=== PATIENT | male | born 1980 | race Caucasian/White ===

== ENCOUNTER 2017-11-19 17:33 | Inpatient (IN) | payer BC, OTHER ==
--- NOTE | 2017-11-19 17:44 | EDPHY ---
H & P Stated Complaint: 1 week intermittent epigastric pain today n/v Time Seen by Provider: 11/19/17 17:42 - Personal History Current Tetanus/Diphtheria Vaccine: Unsure - Medical/Surgical History Hx Asthma: No Hx Chronic Respiratory Disease: No Hx Diabetes: No Hx Cardiac Disease: No Hx Renal Disease: No Hx Cirrhosis: No Hx Alcoholism: No Hx HIV/AIDS: No Hx Splenectomy or Spleen Trauma: No Other PMH: denies - Social History Smoking Status: Never smoked Constitutional: Initial Vital Signs Temperature (C) 36.7 C 11/19/17 17:36 Heart Rate 50 L 11/19/17 17:36 Respiratory Rate 17 11/19/17 17:36 Blood Pressure 127/94 H 11/19/17 17:36 O2 Sat (%) 97 11/19/17 17:36 O2 Delivery Mode Room Air Allergies/Adverse Reactions: No Known Allergies Allergy (Unverified 11/19/17 17:35) Home Medications: Medication Instructions Recorded Levothyroxine [Synthroid 100 mcg 100 mcg PO DAILY06 11/19/17 (*)] Medical Decision Making - Diagnostics Imaging Results: Imaging Impressions Abdomen Ultrasound 11/19/17 17:56 Impression: 1. Cholelithiasis, gallbladder wall thickening, and positive Marc's sign, suggesting acute cholecystitis. 2. Nonspecific 1.7-cm lymph node in the ej hepatis. Results called to Dr. Agustin Hudson at the time of the examination. Imaging: Discussed imaging studies w/ call center analyst Radiologist ED Course/Re-evaluation: CHIEF COMPLAINT: Abdominal pain HISTORY OF PRESENT ILLNESS: Healthy 37-year-old male whose had 1 week of epigastric pain. The pain seems to be exacerbated by food at times. He has had this intermittently over the last several years but it usually resolves spontaneously and half a day or day. He denies fevers or chills. He denies nausea vomiting. He has had normal bowel movements although admits that they are less than usual due to the fact that he has not been eating very much because it hurts. He has never had any abdominal surgeries. REVIEW OF SYSTEMS: A 10 point review of systems was performed and is negative with the exception of the elements mentioned in the history of present illness. PHYSICAL EXAM: HR, BP, O2 Sat, RR. Temp noted General Appearance: Alert, well hydrated, appropriate, and non-toxic appearing. Head: Atraumatic without scalp tenderness or obvious injury Eyes: Pupils equal, round, reactive to light and accommodation, EOMI, no trauma , no injection. Ears: Clear bilaterally, no perforation, normal landmarks Nose: Atraumatic, no rhinorrhea, clear. Throat: There is no erythema or exudates, no lesions, normal tonsils, mucus membranes moist. Neck: Supple, 2+ carotid upstroke, nontender, no lymphadenopathy. Respiratory: No retractions, no distress, no wheezes, and no accessory muscle use. Lungs are clear to auscultation bilaterally. Cardiovascular: Regular rate and rhythm, no murmurs, rubs, or gallops. Bilateral carotid, radial, dorsalis pedis, and posterior tibial pulses intact. Good capillary refill all extremities. Gastrointestinal: Abdomen is soft, positive Marc sign and tenderness in the right upper quadrant and epigastrium, non-distended, no masses, no rebound, no guarding, no peritoneal signs. Musculoskeletal: Normal active ROM of all extremities, atraumatic. Neurological: Alert, appropriate, and interactive. The patient has normal DTRs and non-focal cranial nerves, motor, sensory, and cerebellar exam. Skin: No rashes, good turgor, no nodules on palpation. Past medical history: Hypothyroidism Past surgical history: None Family history: Father had cholecystectomy and appendectomy Social history: , employed, does not abuse tobacco drugs or alcohol DIAGNOSTICS/PROCEDURES/CRITICAL CARE TIME: Study: Ultrasound of the: Gallbladder and right upper quadrant Indication: Positive Marc sign epigastric right upper quadrant pain Results: US scan of the right upper quadrant was obtained. The results of the study reveal acute cholecystitis. The study was read by the radiologist, Dr. Galarza. I viewed the images myself on the PACS system. DIFFERENTIAL DIAGNOSIS: The differential diagnosis for the patient's abdominal pain included but was not limited to appendicitis, cholecystitis, hernias, testicular torsion, gastritis, and urinary tract infection. MEDICAL DECISION MAKING: This patient seems to have maximal tenderness in the right upper quadrant and epigastrium. He has no evidence of peritoneal signs. Laboratory studies are pending including liver and lipase. This patient seems to be getting worse with food and gets better when he does not eat. I am suspicious of a gastritis or gastric ulcer based on that historical fact. Additionally, he took some Maalox which seemed to help him but only transiently. I will give this patient a GI cocktail to see if that also helps him here. 1834: Patient is spilling bilirubin into his urine. He also has elevated LFT's and lipase. He has a normal WBC. His labs reveal acute pancreatitis. 1912: Spoke with radiologist, patient's US reveals acute cholecystitis. 1916: Consulted with Dr. Finch, general surgeon, he agrees to consult on this patient. 1919: Consulted with Dr. Singh, document control clerk, he agrees to consult on this patient. 1926: Consulted with hospitalist service, Dr. Kaplan accepts admission of this patient. 1941: Reassessed patient and discussed imaging findings. I have also discussed plan for admission; patient is comfortable with this plan. 4mg IV Zofran and 1mg IV Dilaudid administered. - Data Points Laboratory Results: Laboratory Results 11/19/17 17:40 11/19/17 17:40 11/19/1718 11/19/17 18:02 17:40 17:40 WBC 6.55 10^3/uL 10^3/uL (3.80-9.50) RBC 5.20 10^6/uL 10^6/uL (4.40-6.38) Hgb 15.8 g/dL g/dL (13.7-17.5) Hct 45.2 % % (40.0-51.0) MCV 86.9 fL fL (81.5-99.8) MCH 30.4 pg pg (27.9-34.1) MCHC 35.0 g/dL g/dL (32.4-36.7) RDW 12.2 % % (11.5-15.2) Plt Count 201 10^3/uL 10^3/uL (150-400) MPV 10.0 fL fL (8.7-11.7) Neut % (Auto) 54.9 % % (39.3-74.2) Lymph % (Auto) 34.5 % % (15.0-45.0) Isabela % (Auto) 8.2 % % (4.5-13.0) Eos % (Auto) 1.4 % % (0.6-7.6) Baso % (Auto) 0.8 % % (0.3-1.7) Nucleat RBC Rel Count 0.0 % % (0.0-0.2) Absolute Neuts (auto) 3.60 10^3/uL 10^3/uL (1.70-6.50) Absolute Lymphs (auto) 2.26 10^3/uL 10^3/uL (1.00-3.00) Absolute Monos (auto) 0.54 10^3/uL 10^3/uL (0.30-0.80) Absolute Eos (auto) 0.09 10^3/uL 10^3/uL (0.03-0.40) Absolute Basos (auto) 0.05 10^3/uL 10^3/uL (0.02-0.10) Absolute Nucleated RBC 0.00 10^3/uL 10^3/uL (0-0.01) Immature Gran % 0.2 % % (0.0-1.1) Immature Gran # 0.01 10^3/uL 10^3/uL (0.00-0.10) Sodium 140 mEq/L mEq/L (135-145) Potassium 4.2 mEq/L mEq/L (3.5-5.2) Chloride 105 mEq/L mEq/L (97-110) Carbon Dioxide 18 mEq/l L mEq/l (22-31) Anion Gap 17 mEq/L H mEq/L (8-16) BUN 11 mg/dL mg/dL (7-23) Creatinine 0.9 mg/dL mg/dL (0.7-1.3) Estimated GFR > 60 Glucose 103 mg/dL H mg/dL (70-100) Calcium 9.6 mg/dL mg/dL (8.5-10.4) Total Bilirubin 6.9 mg/dL H mg/dL (0.1-1.4) Conjugated Bilirubin 4.4 mg/dL H mg/dL (0.0-0.5) Unconjugated Bilirubin 2.5 mg/dL H mg/dL (0.0-1.1) AST 464 IU/L H IU/L (17-59) ALT 505 IU/L H IU/L (21-72) Alkaline Phosphatase 128 IU/L H IU/L (38-126) Total Protein 8.0 g/dL g/dL (6.3-8.2) Albumin 4.8 g/dL g/dL (3.5-5.0) Lipase > 77669 IU/L H IU/L (23-300) Urine Color PAN Urine Appearance CLEAR Urine pH 5.0 (5.0-7.5) Ur Specific Orange 1.016 (1.002-1.030) Urine Protein NEGATIVE (NEGATIVE) Urine Ketones TRACE H (NEGATIVE) Urine Blood NEGATIVE (NEGATIVE) Urine Nitrate NEGATIVE (NEGATIVE) Urine Bilirubin NEGATIVE (NEGATIVE) Urine Urobilinogen 2.0 EU H EU (0.2-1.0) Ur Leukocyte Esterase NEGATIVE (NEGATIVE) Urine Glucose NEGATIVE (NEGATIVE) Medications Given: Discontinued Medications Al Hydroxide/Mg Hydroxide (Maalox Susp) 30 ml PO ONCE ONE Stop: 11/19/17 17:56 Last Admin: 11/19/17 18:00 Dose: 30 ml Ertapenem (Invanz) 1 gm IVP EDNOW ONE PRN Reason: Protocol Stop: 11/19/17 19:20 Last Admin: 11/19/17 19:31 Dose: 1 gm Hydromorphone HCl (Dilaudid) 1 mg IVP EDNOW ONE Stop: 11/19/17 19:31 Last Admin: 11/19/17 19:31 Dose: 1 mg Hyoscyamine Sulfate (Levsin, Hyomax-Sl) 0.25 mg PO ONCE ONE Stop: 11/19/17 17:56 Last Admin: 18 18:00 Dose: 0.25 mg Sodium Chloride (Ns) 1,000 mls @ 0 mls/hr IV EDNOW ONE; Wide Open PRN Reason: Protocol Stop: 11/19/17 17:56 Last Admin: 18 18:00 Dose: 1,000 mls Sodium Chloride (Ns) 1,000 mls @ 0 mls/hr IV ONCE ONE PRN Reason: Wide Open Stop: 11/19/17 19:31 Last Admin: 11/19/17 19:31 Dose: 1,000 mls Lidocaine (Lidocaine 2% Viscous) 15 ml PO ONCE ONE Stop: 11/19/17 17:56 Last Admin: 11/19/17 18:00 Dose: 15 ml Ondansetron HCl (Zofran) 4 mg IVP EDNOW ONE Stop: 11/19/17 19:31 Last Admin: 11/19/17 19:31 Dose: 4 mg Departure - Departure Disposition: [facility] Inpatient Acute Clinical Impression: Acute cholecystitis Pancreatitis, acute Qualifiers: Pancreatitis type: biliary Acute pancreatitis complication: unspecified Qualified Code(s): K85.10 - Biliary acute pancreatitis without necrosis or infection Condition: Fair Referrals: NONE *PRIMARY CARE P,. [Primary Care Provider] - As per Instructions
[2017-11-19] MEDS ORDERED: HYOSCYAMINE SULFATE 0.125 MG TAB PO ONE (17:55)
[2017-11-19] MEDS ORDERED: LIDOCAINE 2% VISCOUS 15 ML UDCUP PO ONE (17:55)
[2017-11-19] MEDS ORDERED: NS 1,000 ML IV ONE ×2 (17:55→19:30)
[2017-11-19] MEDS ORDERED: MAG HYDROX/AL HYDROX/SIMETH 30 ML UDCUP PO ONE (17:55)
[2017-11-19 18:01] LABS: PLATELET COUNT 201 10^3/uL (150-400)
[2017-11-19] MEDS ORDERED: ERTAPENEM 1 GM VIAL IVP ONE (19:19)
[2017-11-19] MEDS ORDERED: HYDROmorphONE/DILAUDID 1 MG/ML INJ ONE (19:27)
[2017-11-19] MEDS ORDERED: ONDANSETRON 4 MG/2 ML VIAL ONE (19:27)
[2017-11-19] MEDS ORDERED: HYDROmorphONE/DILAUDID 1 MG/ML INJ IVP ONE ×2 (19:30→20:28)
[2017-11-19] MEDS ORDERED: ONDANSETRON 4 MG/2 ML VIAL IVP ONE (19:30)
[2017-11-19] MEDS ORDERED: PROMETHAZINE HCL 25 MG/ML INJ ONE (20:07)
[2017-11-19] MEDS ORDERED: PROMETHAZINE HCL 25 MG/ML INJ IVP ONE (20:11)
[2017-11-19] MEDS ORDERED: NS 500 ML IV ONE (20:13)
--- NOTE | 2017-11-19 20:48 | GCON ---
[f rep st] CONSULTATION DATE OF CONSULTATION: 11/19/2017 CHIEF COMPLAINT: Epigastric pain. HISTORY OF PRESENT ILLNESS: This is an otherwise very healthy 37-year-old male who presents to the e mergency department complaining of a week-long history of epigastric pain. Patient states that the p ain has sort of waxed and waned over the last week. Always been epigastric in nature, but got acutel y worse over the last 24 hours to the point where it was associated with nausea and vomiting, which p rompted his presentation here. However, yesterday he did state that he was training for a marathon a nd ran 10 miles. He states that he has had issues like this in the past, although they are typically self-limited by time, and typically get better and never to the level that they are here. In additi on to the epigastric pain he endorses fevers, chills, nausea and vomiting. He does state that the pa in is a stabbing-type nature in the epigastrium with radiation to the back, 8/10 in intensity at its worst, better with p.o. abstinence and IV narcotics, worse with food and significant strenuous activi ty. PAST MEDICAL HISTORY: None. PAST SURGICAL HISTORY: Septoplasty performed remotely. ALLERGIES: None. CURRENT MEDICATIONS: None. FAMILY HISTORY: Appears as though father may have had a similar issue in the past as well. SOCIAL HISTORY: Works in computers. Drinks socially. Denies illicit drug use. REVIEW OF SYSTEMS: A full 10-point review was performed and unless explicitly stated above, is other granados negative. PHYSICAL EXAMINATION: VITAL SIGNS: Temperature 36.9, blood pressure 143/87, heart rate 51, and he i s 94% on room air. CONSTITUTIONAL: He is uncomfortable in mild amount of distress. EYES: His pupi ls are equal, round, and reactive to light and accommodation. He does have anicteric sclerae. His e xtraocular movements are otherwise intact. EARS, NOSE, MOUTH, THROAT: Dry mucous membranes. Hearin g is normal. No oral mucosal ulcers. CARDIOVASCULAR: He has a regular rate and rhythm without any m urmurs. RESPIRATORY: No respiratory distress. No rales, rhonchi, and he is otherwise clear to ausc ultation. GI: He has normoactive bowel sounds. He is significantly tender to palpation in the epig astrium. He is minimally tender in the right upper quadrant with what I would call a negative Marc sign. SKIN: Warm. Normal color. No rashes or abrasions. MUSCULOSKELETAL: Full strength. No ten derness. Normal joint range of motion. No joint effusions. NEUROLOGIC: He is alert and oriented x 3. His cranial nerves 2-12 are intact. He has no weakness, no numbness, no asterixis. PSYCH: He i s interacting appropriately. He is anxious. He is not encephalopathic. LYMPH, HEME AND IMMUNOLOGIC : He has no cervical, groin or supraclavicular lymphadenopathy. LABS: White blood cell count normal at 6. H and H stable at 16 and 45, no left shift. Platelets 20 1. Chemistries are remarkable for an elevated total bilirubin at 6.9, most of which is conjugated at 4.4 . His AST is 464, his ALT is 505, and his alk phos is 128. His lipase is greater than 20,000. The urine is positive for urobilinogen. IMAGING: Includes a right upper quadrant ultrasound, the images of which were personally reviewed by me. This shows cholelithiasis with gallbladder wall thickening. The common bile duct appears sher l, with no choledocholithiasis appreciated. ASSESSMENT AND PLAN: 37-year-old male with gallstone pancreatitis, query cholecystitis. Plan will b e admission to the medical service with gastroenterology consultation. Given his significantly eleva duncan bilirubin and lipase, high concern for choledocholithiasis and possible cholangitis. He has subs equently been started on empiric antibiotics, which I agree with. Question will be whether or not he is candidate for ERCP, but I feel given the above findings that would be the appropriate next step. I did discuss with the patient that prior to cholecystectomy, which I would recommend this admission , I would like to see his epigastric pain and lipase trend toward normal, as operating in the setting of significant pancreatitis increases the risks fairly significantly. I answered all of his and his 's questions to their satisfaction. I will continue to follow. Would recommend continuing to t rend his labs, and will evaluate and recommend cholecystectomy when appropriate. /[id number]/MODL
[2017-11-19] MEDS ORDERED: HYDROmorphONE/DILAUDID 1 MG/ML INJ IVP PRN (20:59)
[2017-11-19] MEDS: NS 1,000 ML IV SCH (21:04)
--- NOTE | 2017-11-20 00:09 | GHP ---
[f rep st] HISTORY AND PHYSICAL DATE OF ADMISSION: 11/19/2017 CHIEF COMPLAINT: Abdominal pain. HISTORY OF PRESENT ILLNESS: This is a 37-year-old male with a history of hypothyroidism, who presents to the emergency department complaining of abdominal pain. He states his symptoms started approximately 1 week ago. However , today his pain dramatically worsened, rating it an 8/10. He feels the pain is worse after eating. He has had this pain in the past. It is generally resolved and has not been this severe previously. He denies fevers or chills. He complains of nausea and did have some vomiting this afternoon. He denies hematemesis. He denies diarrhea or changes in his bowel habits. He denies weight loss. He has had poor oral intake over the past couple of days secondary to pain. In the emergency department, a right upper quadrant ultrasound revealed findings consistent with acute cholecystitis, as well as cholelithiasis. In addition, his lipase was greater than 20,000. Gastroenterology and General Surgery consultations were obtained, and he is admitted to the hospital for further management. PAST MEDICAL HISTORY: Hypothyroidism. MEDICATIONS: Please see ID Watchdog completed outpatient medication list. ALLERGIES: He has no known drug allergies. SOCIAL HISTORY: The patient is a nonsmoker. He is an active marathon runner. He is . He denies a history of alcohol abuse. FAMILY HISTORY: His father has a history of cholecystectomy. Cholecystectomy. REVIEW OF SYSTEMS: A 10-point review of systems was performed and is negative as per HPI. OBJECTIVE: VITAL SIGNS: Temperature 36.8, blood pressure 134/79, heart rate is 48-51, respiratory rate 12, he is 94% on room air. GENERAL: Patient is awake, alert and oriented, though a bit sleepy from medication. He is in no acute distress. HEENT: Head is atraumatic, normocephalic. Pupils equal, round, react to light. Extraocular movements intact. Oropharynx clear. Mucous membranes are moist. NECK: Supple. There is no JVD. HEART: Regular rate and rhythm without murmur. LUNGS: Clear to auscultation bilaterally. ABDOMEN: Soft, nondistended. He has mild epigastric and right upper quadrant tenderness to palpation without rebound, rigidity, or guarding. Normoactive bowel sounds are present. EXTREMITIES: Without cyanosis, clubbing, or edema. NEUROLOGIC: Grossly nonfocal. LABORATORY DATA: CBC is completely normal. Complete metabolic panel is remarkable for a CO2 of 18, anion gap of 17, total bilirubin 6.9, conjugated bilirubin 4.4, unconjugated 2.5, AST 464, ALT 505, alkaline phosphatase 128. His lipase is greater than 20,000. Urinalysis is non infectious. A right upper quadrant abdominal ultrasound performed in the emergency department shows cholelithiasis with gallbladder wall thickening and positive Marc sign consistent with acute cholecystitis. A nonspecific 1.7 cm lymph node is noted in the ej hepaticus. ASSESSMENT AND PLAN: The patient is a 37-year-old male, history of hypothyroidism, presents to the emergency department with abdominal pain, nausea , vomiting, is found to have gallstone pancreatitis, as well as acute cholecystitis. 1. Gallstone pancreatitis. There is no evidence of common bile duct dilatation on his right upper quadrant ultrasound by the surgeon's review. However, it is possible he will warrant endoscopic retrograde cholangiopancreatography. Given his degree of inflammation, will start with a magnetic resonance cholangiopancreatography in the morning. GI consult was obtained and will see the patient to consider need for endoscopic retrograde cholangiopancreatography. In the meantime, we will treat him with bowel rest and pain control with IV Dilaudid. He will be kept n.p.o. and receive aggressive IV fluids. Fortunately, he has no tachycardia. 2. Acute cholecystitis. He presents with elevated liver function tests and ultrasound findings of gallbladder wall thickening consistent with acute cholecystitis. General Surgery consult was obtained. He will likely warrant a cholecystectomy, though need to stabilize his pancreatitis situation 1st. Will continue him on intravenous ertapenem for now due to concern and risk for cholangitis. 3. Anion gap metabolic acidosis. This may be a starvation ketosis given his poor oral intake. Will follow this with hydration and aggressive IV fluids in the setting of pancreatitis. 4. Hypothyroidism. Will continue his outpatient levothyroxine. 5. Code status. Patient is full code. 6. Deep venous thrombosis prophylaxis. Patient is low risk. Will place sequential compression devices for now. Should he have a prolonged hospitalization with poor mobility, would consider Lovenox. 7. Disposition. Patient admitted to inpatient status. I anticipate greater than 48 hours hospitalization for ongoing management of his gallstone pancreatitis and acute cholecystitis. DICTATION ENDS HERE /[id number]/MODL MTDD
[2017-11-20] MEDS: ONDANSETRON 4 MG/2 ML VIAL IVP PRN ×3 (01:45→20:47)
[2017-11-20] MEDS: NS 1,000 ML IV SCH ×3 (01:46→20:16)
[2017-11-20] MEDS: HYDROmorphONE/DILAUDID 1 MG/ML INJ IVP PRN ×6 (01:51→20:47)
[2017-11-20] MEDS: PROMETHAZINE HCL 25 MG/ML INJ IVP PRN ×2 (02:53→11:38)
[2017-11-20 04:42] LABS: PLATELET COUNT 165 10^3/uL (150-400)
[2017-11-20 04:54] LABS: INR 1.24 (0.83-1.16); PROTIME(PATIENT) 15.8 SEC (12.0-15.0)
[2017-11-20] MEDS: LEVOTHYROXINE 100 MCG TAB PO SCH (05:42)
--- NOTE | 2017-11-20 08:20 | GCON ---
[f rep st] CONSULTATION DATE OF CONSULTATION: 11/20/2017 REFERRING PHYSICIAN: Magda Kaplan MD Dear Dr. Kaplan: Thank you very kindly for asking me to evaluate this patient in consultation for a chief complaint of acute pancreatitis. He is a 37-year-old gentleman without significant past medical history other th an hypothyroidism who has been having episodes of epigastric pain for about 7-10 days. He has also h ad a history of more remote but short-lived episodes of abdominal pain in the past. These have never been evaluated up until yesterday evening when the pain was significant enough to cause him to prese nt to the emergency room. At that point, he was noted to have elevated liver tests with an obstructe d pattern showing a total bilirubin of 6.9, elevated transaminases and an alkaline phosphatase of 128 , all of which were elevated and lipase greater than 20,000. An abdominal ultrasound performed revea led cholelithiasis with gallbladder wall thickening and a positive Marc sign, consistent with acute cholecystitis. The biliary anatomy was not noted on the report to be either normal or dilated. The pancreas was seen partly and was prominent in size without peripancreatic fluid collection. Overnight Chalo has reported continued problems with mild epigastric pain that radiates into his back although, with medication, it seems to be better controlled. His biggest problem has been ongoing na usea. He denies any fever, chills, jaundice or pruritus. He denies tea-colored urine, flank pain or dysuria. He has not had previous pancreatitis. He does not drink alcohol. There is no family hist ory of pancreatitis. PAST MEDICAL HISTORY: Hypothyroidism and what sounds like episodes of biliary colic. PAST SURGICAL HISTORY: None. MEDICATIONS ON ADMISSION: Synthroid. ALLERGIES: None known. SOCIAL HISTORY: No alcohol. The patient is . He lives in [place]. No biologic children. REVIEW OF SYSTEMS: CONSTITUTIONAL: Loss of appetite, nausea, general malaise. Denies fever, chills , night sweats, or weight loss. HEENT: Denies headache, no sore throat, no rhinorrhea, no difficult y swallowing. PULMONARY: No cough or shortness of breath. CARDIOVASCULAR: No chest pains, palpita tions or syncope. GI: Denies diarrhea. Denies acholic stools. Denies heartburn or dysphagia. Abd ominal pain, nausea without vomiting per the HPI. Duration of the pain has been approximately 24 shai rs at this point. RHEUMATOLOGIC: No joint pain, swelling or warmth. DERMATOLOGIC: No jaundice or pruritus. NEURO: Denies falls, weakness or paresthesias. GENITOURINARY: Denies dysuria, flank michelle n, or tea-colored urine. Denies hematuria. PSYCHIATRIC: Denies depression, anxiety, or substance a buse history. PHYSICAL EXAM: VITAL SIGNS: Blood pressure is 121/66 with a mean arterial pressure of 84. His hear t rate is 80, respirations are 16, oxygenation is 97% on 2 L nasal cannula. T-max is 37.1 with a T c urrent of 36.9. Body mass index is 23.4. GENERAL: Healthy appearing male in mild distress, mostly due to pain but comfortable and able to provide his own history and in no immediate distress. HEENT: Sclerae are anicteric. Oropharynx is clear. NECK: Supple. Mucous membranes are dry. No jugular venous distention or adenopathy to the neck. No thyromegaly. No jugular venous distention or carot id bruit. PULMONARY: Clear to auscultation bilaterally with good respiratory exchange. CARDIOVASCU LAR: Regular rate and rhythm without murmur, rub, gallop, or tachycardia. GI: Abdomen is soft and nondistended, no ascites, no abdominal bruit. Bowel sounds are hypoactive. No rebound or guarding. MUSCULOSKELETAL: No joint deformity, swelling or warmth. No palmar erythema. No clubbing. DERMAT OLOGIC: No rash or jaundice. NEUROLOGIC: Alert to person, place, and time. Cranial nerves 2-12 ar e normal. Motor is symmetric and nonfocal. DATABASE: Laboratories showing a white blood count of 6.8, hematocrit of 36.8 with an MCV of 87, roula telets are 165. INR is 1.24 with a PT of 15.2. Initial LFTs on November 19 show a total bilirubin o f 6.9 with a direct of 4.4, AST 464, ALT 505, alkaline phosphatase 128, lipase is greater than 20,000 , albumin 4.8, total protein 8.0. Laboratories this morning for LFTs, November 20, 2017, showed tota l bilirubin of 3.0 with a direct of 1.5, AST is 229, ALT is 396, alkaline phosphatase 74, lipase is 1 8,153. Imaging includes an abdominal ultrasound performed on November 19, 2017, demonstrating a pancreas leonardo t is mildly prominent without peripancreatic fluid collection. The gallbladder contains echogenic st ones that are dependent within the gallbladder body. There is wall thickening to 4.3 mm and a positi ve sonographic Marc's. The biliary anatomy is not noted. IMPRESSION: 1. Epigastric abdominal pain. 2. Nausea without vomiting. 3. Elevated liver tests. 4. Acute pancreatitis, most likely gallstone mediated. 5. Possible biliary obstruction. RECOMMENDATIONS: 1. N.p.o. 2. Aggressive IV fluid hydration. 3. Invanz for prophylaxis in the setting of gallstone pancreatitis with obstruction. 4. MRCP today to better evaluate the biliary anatomy and see if there is a retained stone that needs to be removed. 5. Surgical consultation for cholecystectomy. 6. If the patient's labs and clinical picture continued to improve with resolution of his pancreatit is and his MRCP is normal without dilated ductal anatomy and no evidence of choledocholithiasis in th e setting of good quality MR imaging, then a laparoscopic cholecystectomy with attempted IOC (intraop erative cholangiogram) could be considered as an alternative to preoperative ERCP. 7. If his MRCP however, demonstrates choledocholithiasis, I believe a preoperative ERCP would be nec essary. 8. Further recommendations depending his clinical course. Continue to monitor LFTs and lipase for n ow. 9. Further recommendations to follow. /[id number]/MODL
[2017-11-20] MEDS: ERTAPENEM 1 GM VIAL IV SCH (08:45)
--- NOTE | 2017-11-20 10:39 | PDMN ---
Medical Necessity Medical necessity: Patient meets inpatient criteria per physician note and [facility] [place] -[place] Pancreatitis (patient presents w/epigastric pain waxing/waning x 1 week, now with N/V; lipase > 20,000 and elevated liver enzymes; US suggests acute cholecystitis/gallstone pancreatitis; anticipated LOS > 2 midnights for bowel rest, IV hydration and antibiotics, IV Dilaudid for pain management, possible ERCP, likely surgical intervention after pancreatitis stabilized.)
--- NOTE | 2017-11-20 11:11 | SOAPPROG ---
SOAP Progress Note Assessment/Plan: Assessment/Plan: - 37yo M c gallstone panc, ? cholecystitis - WBC WNL - LFTs downtrending, lipase still 18k - still pretty tender in the epigastrium and RUQ - MRCP today, ERCP pending results - Ricarda when clinically.biochemically improved 11/20/17 11:10 Subjective: nauseated through the night, better this AM Objective: Vital Signs Temp Pulse Resp BP Pulse Ox 37.2 C 61 16 122/70 H 95 11/20/17 08:18 11/20/17 08:18 11/20/17 08:18 11/20/17 08:18 11/20/17 08:18 Laboratory Results 11/20/17 04:31 11/20/17 04:31 11/19/17 11/20/17 11/21/17 05:59 05:59 05:59 Intake Total 5074 Balance 5074 PT 15.8 SEC (12.0-15.0) H 11/20/17 04:31 INR 1.24 (0.83-1.16) H 11/20/17 04:31 ICD10 Worksheet Patient Problems: Problems Problem Status Onset Acute cholecystitis Acute Pancreatitis, acute Acute
[2017-11-20] MEDS ORDERED: GADOBUTROL 10 ML VIAL IVP ONE (12:28)
--- NOTE | 2017-11-20 13:39 | HOSPPROG ---
Hospitalist Progress Note Assessment/Plan: DIAGNOSES: -acute gallstone pancreatitis -acute cholecystitis -cholelithiasis -anion gap metabolic acidosis -mild anemia due to above I reviewed all the above in detail with the patient, and we reviewed the nature and mechanisms of pancreatitis, the aggravating factors and causes, the need to rule out potential persistent obstructing ductal stone in the benefits of cholecystectomy. We reviewed the potential complications of acute and recurrent pancreatitis. At present it seems that this will almost certainly be a gallstone induced pancreatitis but will want to check a triglyceride to be sure that that is not significantly elevated. PLANS: -continue IV hydration -continue current antibiotics -continue NPO -MRCP ordered and pending will review that as it is done; consider ERCP for stone extraction if necessary -pain management -cholecystectomy will be recommended once he is stable enough -repeat CBC, liver panel, electrolytes and glucose in the morning to assess for improvement or worsening -will check triglycerides to make sure they are not causative SUBJECTIVE: The pain is better managed at this point Occasional nausea but not much to so far No appetite No chills or sweats or other fever symptoms No respiratory symptoms OBJECTIVE Vitals reviewed: No fever vitals overall stable No hypoxemia Exam: alert oriented skin warm dry color ok no jaundice resps not labored lungs clear BSs heart regular abd soft nondistended mildly tender at epigastrium, no rebound and no palpable abnormality, bowel sounds present limbs warm, no edema iv site ok Lab data: His lipase remains elevated at 18,000 thousand Bilirubin remains elevated but has improved slightly from yesterday, still has elevations of hepatic transaminases Renal function stable Glucose and calcium are in good range The I reviewed his MRCP images today, I can see numerous gallstones in the gallbladder but at least through the [employer] windows I am unable to adequately assess the biliary and pancreatic ducts systems to see how dilated they might be or if there are ductal stones. Will need to review with Radiology , no radiology report available yet. Objective: Vital Signs Temp Pulse Resp BP Pulse Ox 37.1 C 69 15 115/66 94 11/20/17 11:39 11/20/17 11:39 11/20/17 11:39 11/20/17 11:39 11/20/17 11:39 Laboratory Results 11/20/17 04:31 11/20/17 04:31 11/19/17 11/20/17 11/21/17 06:59 06:59 06:59 Intake Total 5074 Balance 5074 PT 15.8 SEC (12.0-15.0) H 11/20/17 04:31 INR 1.24 (0.83-1.16) H 11/20/17 04:31 ICD10 Worksheet Patient Problems: Problems Problem Status Onset Acute cholecystitis Acute Pancreatitis, acute Acute
--- NOTE | 2017-11-20 16:28 | ASMTCMCOM ---
CM Note CM Note Notes: Pt was admitted with acute cholecystitis, pancreatitis. Lap priscilla planned. Anticipate d/c with no CM needs when medically cleared. Will continue to follow for any change in needs. Date Signed: 11/20/2017 04:27 PM Electronically Signed By:ADRIANNA Santana
[2017-11-21] MEDS: NS 1,000 ML IV SCH ×3 (01:16→16:11)
[2017-11-21 05:08] LABS: PLATELET COUNT 172 10^3/uL (150-400)
[2017-11-21] MEDS: LEVOTHYROXINE 100 MCG TAB PO SCH (05:49)
[2017-11-21] MEDS: ERTAPENEM 1 GM VIAL IV SCH (09:02)
--- NOTE | 2017-11-21 11:58 | SOAPPROG ---
FISH Progress Note Assessment/Plan: Assessment: 1. GS pancreatitis 2. Epigastric pain 3. Cholelithiasis 4. Elevated LFTs Plan: 1. Negative MRCP and clinical improvement suggests stone passage 2. Recommend lap cholecystectomy with IOC 3. NPO for now 4. If pre-op ERC is felt to be important by surgery or IOC is positive then I will arrange for ERC Call with questions. I will contact surgery today regarding my thoughts. 11/21/17 11:55 Subjective: CC: abdominal pain Improved. MRC negative (normal ductal anatomy without choledocholithiasis No fever. LFTs much improved. Objective: Vital Signs Temp Pulse Resp BP Pulse Ox 37.2 C 81 16 134/79 H 93 11/21/17 09:44 11/21/17 09:44 11/21/17 09:44 11/21/17 09:44 11/21/17 09:44 Laboratory Results 11/21/17 05:00 11/21/17 05:00 11/20/17 11/21/17 11/22/17 05:59 05:59 05:59 Intake Total 5074 1525 2532 Output Total 450 Balance 5074 1525 2082 PT 15.8 SEC (12.0-15.0) H 11/20/17 04:31 INR 1.24 (0.83-1.16) H 11/20/17 04:31 Physical Exam - Physical Exam General Appearance: WD/WN, no apparent distress EENT: normal ENT inspection Neck: supple Respiratory: lungs clear Cardiac/Chest: regular rate, rhythm, No tachycardia Abdomen: normal bowel sounds, non-tender, soft, No organomegaly, No distended, No guarding, No rebound, No ascites Skin: warm/dry, No jaundice Extremities: No swelling ICD10 Worksheet Patient Problems: Problems Problem Status Onset Acute cholecystitis Acute Pancreatitis, acute Acute
[2017-11-21] MEDS: ONDANSETRON 4 MG/2 ML VIAL IVP PRN (12:48)
[2017-11-21] MEDS: HYDROmorphONE/DILAUDID 1 MG/ML INJ IVP PRN (12:49)
--- NOTE | 2017-11-21 14:20 | SOAPPROG ---
SOAP Progress Note Assessment/Plan: Assessment/Plan: - 37yo M c gallstone panc, ? cholecystitis - WBC remains WNL - MRCP reviewed: duct looks normal without filling defect. Fluid around pancreas c/w significant pancreatitis and GB wall thickening cw cholecystitis - Lipase still just under 10k today, cont to trend. LFTs mostly normalized - Continues to improve clinically, discussed with Gatoff, no need for pre-op ERCP. - Likely to OR for lap priscilla with grams in next 24-48hrs, discussed this with the patient 11/20/17 11:10 11/21/17 14:18 Subjective: still having epigastric and RUQ pain, improving Objective: Vital Signs Temp Pulse Resp BP Pulse Ox 37.2 C 81 16 134/79 H 93 11/21/17 09:44 11/21/17 09:44 11/21/17 09:44 11/21/17 09:44 11/21/17 09:44 Laboratory Results 11/21/17 05:00 11/21/17 05:00 11/20/17 11/21/17 11/22/17 05:59 05:59 05:59 Intake Total 5074 1525 2532 Output Total 450 Balance 5074 1525 2082 PT 15.8 SEC (12.0-15.0) H 11/20/17 04:31 INR 1.24 (0.83-1.16) H 11/20/17 04:31 ICD10 Worksheet Patient Problems: Problems Problem Status Onset Acute cholecystitis Acute Pancreatitis, acute Acute
--- NOTE | 2017-11-21 19:41 | HOSPPROG ---
Hospitalist Progress Note Assessment/Plan: DIAGNOSES: -acute gallstone pancreatitis -acute cholecystitis -cholelithiasis -anion gap metabolic acidosis -mild anemia due to above I examined the patient together today with Dr Singh and we reviewed case in detail I reviewed again in detail with the patient. He does not have evidence of stone or obstruction now. Should have cholecystectomy when pancreatitis sufficiently resolved. ? 1-2 days or more. At present conservative care remains indicated. PLANS: -continue IV hydration -continue current antibiotics -continue NPO -review w surgery, likely to recommend lap priscilla soon -pain management -repeat labs in am SUBJECTIVE: The pain is better managed at this point Occasional nausea but not much to so far No appetite No chills or sweats or other fever symptoms No respiratory symptoms OBJECTIVE Vitals reviewed: No fever vitals overall stable No hypoxemia Exam: alert oriented skin warm dry color ok no jaundice resps not labored lungs clear BSs heart regular abd soft nondistended mildly tender at epigastrium, no rebound and no palpable abnormality, bowel sounds present limbs warm, no edema iv site ok Lab data: His lipase remains elevated at 9,000 thousand but decreasing daily bili and transaminases better Renal function stable Glucose and calcium are in good range triglycerides normal Objective: Vital Signs Temp Pulse Resp BP Pulse Ox 37.2 C 73 17 126/79 H 93 11/21/17 16:31 11/21/17 16:31 11/21/17 16:31 11/21/17 16:31 11/21/17 16:31 Laboratory Results 11/21/17 05:00 11/21/17 05:00 11/20/17 11/21/17 11/22/17 06:59 06:59 06:59 Intake Total 5074 4057 2237 Output Total 450 Balance 5074 4057 1787 PT 15.8 SEC (12.0-15.0) H 11/20/17 04:31 INR 1.24 (0.83-1.16) H 11/20/17 04:31 - Time Spent With Patient Time Spent with Patient: greater than 35 minutes Time Spent with Patient: Greater than 35 minutes spent on this patients care, greater than 50% of time spent counseling, educating, and coordinating care regarding the above mentioned plan. ICD10 Worksheet Patient Problems: Problems Problem Status Onset Acute cholecystitis Acute Pancreatitis, acute Acute
[2017-11-21] MEDS ORDERED: MELATONIN 3 MG TAB PO PRN (23:29)
[2017-11-21] MEDS ORDERED: KETOROLAC 15 MG/1 ML SDV IVP ONE (23:29)
[2017-11-22] MEDS: NS 1,000 ML IV SCH ×2 (04:05→10:51)
[2017-11-22] MEDS: LEVOTHYROXINE 100 MCG TAB PO SCH (06:14)
[2017-11-22] MEDS: ERTAPENEM 1 GM VIAL IV SCH (09:09)
[2017-11-22] MEDS ORDERED: FLU VACC QS 2017-18 (3YR+)/PF 0.5 ML SYR (FLUARIX QUAD) IM ONE (12:09)
--- NOTE | 2017-11-22 14:17 | HOSPPROG ---
Hospitalist Progress Note Assessment/Plan: DIAGNOSES: -acute gallstone pancreatitis -acute cholecystitis -cholelithiasis -anion gap metabolic acidosis -mild anemia due to above I examined the patient together today with Dr Singh and we reviewed case in detail I reviewed again in detail with the patient. He does not have evidence of stone or obstruction now. Should have cholecystectomy when pancreatitis sufficiently resolved. ? 1-2 days or more. At present conservative care remains indicated. PLANS: -Likely ready for lap priscilla tomorrow, Surgery to eval -continue IV hydration -continue current antibiotics -cont likely advance to [facility] -pain management -repeat labs in am Subjective: Feels better. no abd pain. still NPO Objective: Vital Signs Temp Pulse Resp BP Pulse Ox 37.1 C 71 18 152/89 H 94 11/22/17 13:26 11/22/17 13:26 11/22/17 13:26 11/22/17 13:26 11/22/17 13:26 Laboratory Results 11/21/17 05:00 11/22/17 04:39 11/21/17 11/22/17 11/23/17 05:59 05:59 05:59 Intake Total 1525 6129 Output Total 450 Balance 1525 5679 PT 15.8 SEC (12.0-15.0) H 11/20/17 04:31 INR 1.24 (0.83-1.16) H 11/20/17 04:31 - Physical Exam Constitutional: no apparent distress Eyes: PERRL Ears, Nose, Mouth, Throat: moist mucous membranes, hearing normal Cardiovascular: regular rate and rhythym, no murmur, rub, or gallop Respiratory: no respiratory distress Gastrointestinal: normoactive bowel sounds, No tenderness Genitourinary: no bladder fullness Skin: warm Musculoskeletal: full muscle strength Neurologic: AAOx3 Psychiatric: interacting appropriately Lymph, Heme, Immunologic: no cervical LAD ICD10 Worksheet Patient Problems: Problems Problem Status Onset Acute cholecystitis Acute Pancreatitis, acute Acute
--- NOTE | 2017-11-22 16:49 | SOAPPROG ---
SOAP Progress Note Assessment/Plan: Assessment/Plan: 37 Y M gallstone pancreatitis. Lipase continues to improve, now 5,000. Patient feeling well. Plan for lap priscilla c IOC c Dr. Finch tomorrow, 11/23. Risks, options, and expectations discussed. Patient without many questions--felt comfortable with answers from Dr. Finch over the last few days. Clear liquids today. NPO p mn. Hold chemical VTE ppx. On scheduled abx. Consent in chart. S: not in much pain. eager to get better so he can attend IVF treatment with fri or sat. O: alert, nad no jaundice no wob rrr abd soft, mild epigastric tenderness, no guarding 11/22/17 16:44 Objective: Vital Signs Temp Pulse Resp BP Pulse Ox 37.2 C 76 16 148/86 H 94 11/22/17 16:33 11/22/17 16:33 11/22/17 16:33 11/22/17 16:33 11/22/17 16:33 Laboratory Results 11/21/17 05:00 11/22/17 04:39 11/21/17 11/22/17 11/23/17 05:59 05:59 05:59 Intake Total 1525 6129 2394 Output Total 450 Balance 1525 5645 2394 PT 15.8 SEC (12.0-15.0) H 11/20/17 04:31 INR 1.24 (0.83-1.16) H 11/20/17 04:31 ICD10 Worksheet Patient Problems: Problems Problem Status Onset Acute cholecystitis Acute Pancreatitis, acute Acute
[2017-11-23] MEDS: NS 1,000 ML IV SCH ×2 (00:10→06:25)
[2017-11-23] MEDS: LEVOTHYROXINE 100 MCG TAB PO SCH (06:29)
[2017-11-23] MEDS ORDERED: BUPIVACAINE 0.25% 30 ML SDV ONE (07:36)
[2017-11-23] MEDS ORDERED: LR 1,000 ML IV ONE (07:55)
--- NOTE | 2017-11-23 08:16 | PDHPUP ---
History & Physical Update H&P update statement: This history and physical update is based on an assessment of the patient which was completed after admission or registration (within 24 hours), but prior to the surgery/procedure. H&P update: H&P reviewed & patient examined, no change in patient's condition since H&P completed
[2017-11-23] MEDS ORDERED: MIDAZOLAM 2 MG/2 ML VIAL IVP ONE (08:33)
--- NOTE | 2017-11-23 08:33 | PDANEPAE ---
ANE History of Present Illness cholelithiasis/pancreatitis here for lap priscilla ANE Past Medical History - Cardiovascular History Hx Hypertension: No Hx Arrhythmias: No Hx Chest Pain: No - Pulmonary History Hx Oxygen in Use at Home: No Hx Sleep Apnea: No Sleep Apnea Screening Result - Last Documented: Negative - Endocrine History Hx Diabetes: No Hypothyroid: Yes ANE Review of Systems Review of Systems: - Exercise capacity Exercise capacity: >=4 METS ANE Patient History - Allergies Allergies/Adverse Reactions: No Known Allergies Allergy (Unverified 11/19/17 17:35) - Home Medications Home Medications: Levothyroxine [Synthroid 100 mcg (*)] 100 mcg PO DAILY06 11/19/17 [Last Taken Unknown] - NPO status NPO Status: no food or drink >8 hours NPO Since - Liquids (Date): 11/23/17 NPO Since - Liquids (Time): 00:01 NPO Since - Solids (Date): 11/19/17 NPO Since - Solids (Time): 12:00 - Anes Hx Anes Hx: no prior problems - Smoking Hx Smoking Status: Never smoked - Alcohol Use Alcohol Use: Occasionally - Family Anes Hx Family Anes Hx: none ANE Labs/Vital Signs - Labs Result Diagrams: 11/21/17 05:00 11/23/17 05:01 - Vital Signs Blood Pressure: 136/92 Heart Rate: 64 Respiratory Rate: 12 O2 Sat (%): 91 Height: 180.34 cm Weight: 76.204 kg ANE Physical Exam - Airway Neck exam: FROM Mallampati Score: Class 2 Mouth exam: normal dental/mouth exam - Pulmonary Pulmonary: no respiratory distress, clear to auscultation - Cardiovascular Cardiovascular: regular rate and rhythym, no murmur, rub, or gallop - ASA Status ASA Status: II ANE Anesthesia Plan Anesthesia Plan: general endotracheal anesthesia
[2017-11-23] MEDS ORDERED: IOTHALAMATE MEG (CONRAY) 50 ML VIAL IV ONE (08:38)
[2017-11-23] MEDS ORDERED: fentaNYL 100 MCG/2 ML INJ ONE ×3 (08:40→10:04)
[2017-11-23] MEDS ORDERED: PROPOFOL 200 MG/20 ML VIAL ONE (08:40)
[2017-11-23] MEDS ORDERED: ROCURONIUM 50 MG/5 ML VIAL ONE ×2 (08:47→09:31)
[2017-11-23] MEDS ORDERED: ONDANSETRON 4 MG/2 ML VIAL ONE (08:47)
[2017-11-23] MEDS ORDERED: DEXAMETHASONE 4 MG/ML VIAL ONE (08:47)
[2017-11-23] MEDS ORDERED: LIDOCAINE 2% 5 ML SDV ONE (08:47)
[2017-11-23] MEDS: ERTAPENEM 1 GM VIAL IV SCH (09:15)
[2017-11-23] MEDS ORDERED: SUGAMMADEX SODIUM 200 MG/2 ML VIAL IVP ONE (09:53)
[2017-11-23] MEDS ORDERED: oxyCODONE IR 5 MG TAB PO PRN (10:15)
--- NOTE | 2017-11-23 10:15 | POSTOPPROG ---
Post Op Note Date of Operation: 11/23/17 Surgeon: Jonathan Finch Anesthesiologist: Mony Anesthesia: GET(General Endotracheal) Pre-op Diagnosis: Gallstone pancreatitis Post-op Diagnosis: gallstone panc, acute cholecystitis Procedure: lap priscilla with IOC Findings: IOC: no defect. Criticla view obtained Inf/Abcess present in the surg proc area at time of surgery?: No EBL: Minimal Specimen(s): GB
[2017-11-23] MEDS ORDERED: ONDANSETRON 4 MG/2 ML VIAL IVP PRN (10:38)
[2017-11-23] MEDS ORDERED: ACETAMINOPHEN 500 MG TAB PO PRN (10:38)
[2017-11-23] MEDS ORDERED: HYDROCODONE/APAP 5/325 TAB PO PRN (10:38)
[2017-11-23] MEDS ORDERED: OXYCODONE/APAP 5/325 TAB PO PRN (10:38)
[2017-11-23] MEDS ORDERED: fentaNYL 100 MCG/2 ML INJ IVP PRN (10:38)
[2017-11-23] MEDS ORDERED: NALOXONE HCL 0.4 MG/ML INJ IVP PRN (10:38)
--- NOTE | 2017-11-23 10:40 | POSTANESTH ---
Post Anesthetic Evaluation Cardiovascular Status: Normal, Stable, Similar to Pre-Op Cond Respiratory Status: Normal, Stable, Similar to Pre-op Cond. Level of Consciousness/Mental Status: Can Participate in Eval, Alert and Oriented Pain Control: Adequate, Prn Tx Ordered Nausea/Vomiting Control: Adequate, Prn Tx Ordered Complications Possibly Related to Anesthesia: None Noted
--- NOTE | 2017-11-23 11:08 | GOP ---
[f rep st] OPERATIVE REPORT DATE OF OPERATION: 11/23/2017 SURGEON: Jonathan Finch MD BULB FILLER: None. ANESTHESIA: General endotracheal provided by Dr. Sykes. PREOPERATIVE DIAGNOSIS: Gallstone pancreatitis. POSTOPERATIVE DIAGNOSIS: 1. Gallstone pancreatitis. 2. Acute cholecystitis. PROCEDURE PERFORMED: Laparoscopic cholecystectomy with intraoperative cholangiogram. FINDINGS: Intraoperative cholangiogram showed brisk spillage of contrast into the duodenum without filling defect. Critical view obtained. SPECIMENS: Gallbladder. ESTIMATED BLOOD LOSS: 5 cc. DESCRIPTION OF PROCEDURE: The patient was greeted in the preoperative suite. Once again, risks, benefits, and alternatives were discussed. Consent was signed. He was then brought back to the operative suite, placed on the OR table in supine position. After all anesthesia machines including SCDs were on and functioning, [employer] time-out was performed. After successful induction of general anesthesia, the patient's abdomen was widely prepped and draped in a typical sterile fashion. I commenced the procedure by making an infraumbilical cutdown through which the Veress needle was passed. I achieved pneumoperitoneum to 15 mmHg which was well tolerated. Through this, I inserted a 12 mm Visiport. I inspected all the viscera. There was some free fluid in the right upper quadrant consistent with his pancreatitis, but no other significant findings. I then placed 3 additional 5 mm trocars, 1 in the subxiphoid, 2 in the right upper quadrant, all under direct visualization. I successfully retracted the gallbladder over the liver edge and bluntly took down some omental adhesions. After taking down these adhesions, I grasped the infundibulum and it dissected. Identified 2 and only 2 structures leading toward the gallbladder. The Hudson clamp was then brought in and a cholangiogram was performed. This showed brisk spillage of contrast into the duodenum without filling defect as well as good opacification of all of the biliary radicles. The Hudson clamp was then removed. Clips were placed both proximally and distally on the cystic duct and it was ligated. I did place an additional 0 PDS Endoloop for additional securing of the cystic duct stump as it was somewhat edematous. The cystic artery was then dissected out, clipped and divided. The gallbladder was then taken off the liver bed using electrocautery. It was placed in an EndoCatch bag and removed. The right upper quadrant was then irrigated with warm normal saline noting clear effluent in the suction canister. My clips and Endoloop were then inspected and noted to be in appropriate place and hemostatic. I then injected local anesthesia into all port sites which were then removed. I evacuated my pneumoperitoneum. I closed my infraumbilical stitch in the port site with an 0 Vicryl stitch noting excellent fascial reapproximation. The skin was closed with Monocryl. Dermabond was placed. The patient was then extubated in the operative suite and taken to the PACU in satisfactory condition. DRAINS: None. COUNTS: All counts were reported as correct x2. /[id number]/MODL MTDD
[2017-11-23 11:24] VITALS: RESP 18
[2017-11-23 12:12] VITALS: PULSE 68
--- NOTE | 2017-11-23 14:19 | HOSPPROG ---
Hospitalist Progress Note Assessment/Plan: DIAGNOSES: -acute gallstone pancreatitis -acute cholecystitis -cholelithiasis -anion gap metabolic acidosis -mild anemia due to above I examined the patient together today with Dr Singh and we reviewed case in detail I reviewed again in detail with the patient. He does not have evidence of stone or obstruction now. Should have cholecystectomy when pancreatitis sufficiently resolved. ? 1-2 days or more. At present conservative care remains indicated. PLANS: -The patient is seen around 1400. He had Lap Priscilla today. He has not had flatus. He is hoping to d/c today -d/c per surgery, today or tomorrow -pain mgmt -Diet per surgery Subjective: had lap priscilla today. no flatus. He is hoping to d/c tomorrow Objective: Vital Signs Temp Pulse Resp BP Pulse Ox 36.9 C 68 18 154/92 H 93 11/23/17 12:11 11/23/17 12:11 11/23/17 12:11 11/23/17 12:11 11/23/17 12:11 Laboratory Results 11/21/17 05:00 11/23/17 05:01 11/22/17 11/23/17 11/24/17 05:59 05:59 05:59 Intake Total 6129 4694 500 Output Total 450 20 Balance 5679 4694 480 PT 15.8 SEC (12.0-15.0) H 11/20/17 04:31 INR 1.24 (0.83-1.16) H 11/20/17 04:31 - Physical Exam Constitutional: no apparent distress, appears nourished Eyes: PERRL, EOMI Ears, Nose, Mouth, Throat: moist mucous membranes, hearing normal Cardiovascular: regular rate and rhythym, no murmur, rub, or gallop Respiratory: no respiratory distress Gastrointestinal: other (hypoactive BS, minimally distended, appropriate mild TTP) Skin: warm Musculoskeletal: generalized weakness Neurologic: AAOx3 Psychiatric: interacting appropriately, not anxious, not encephalopathic Lymph, Heme, Immunologic: No petechiae ICD10 Worksheet Patient Problems: Problems Problem Status Onset Acute cholecystitis Acute Pancreatitis, acute Acute
--- NOTE | 2017-11-23 14:46 | ASMTCMCOM ---
CM Note CM Note Notes: Reviewed chart and discussed w/RN and Hospitalist. Pt hasd surgery earlier today. Anticipate dc home w/, no CM needs when medically ready. Date Signed: 11/23/2017 02:45 PM Electronically Signed By:Zara Fish RN
[2017-11-23 16:44] VITALS: BP 156/95; TEMP 97.9; O2SAT 94
== END 2017-11-23 19:48 | disposition home or self-care (01) | DRG 417 ==
LOC: F1N 20:37
PROVIDERS: ADMIT Hospitalist; ATTEND Internal Medicine
DX: K80.12 Calculus of gallbladder with acute and chronic cholecystitis without obstruction (principal); K85.10 Biliary acute pancreatitis without necrosis or infection
CPT/HCPCS: 96374; A9585; G0008; J0171; J1100; J1170; J1335; J1885; J2250; J2405; J2550; J2704; J3010; Q9961

== ENCOUNTER 2017-11-24 18:18 | Emergency (ER) | payer OTHER ==
[2017-11-24 18:23] VITALS: RESP 16; TEMP 97.5; O2SAT 97
--- NOTE | 2017-11-24 18:56 | EDPHY ---
H & P Time Seen by Provider: 11/24/17 18:42 HPI/ROS: CHIEF COMPLAINT: Leg swelling and tingling HISTORY OF PRESENT ILLNESS: The patient had recent admission to the hospital for gallstone pancreatitis and was several days on IV fluids. He had cholecystectomy yesterday was discharged last night. Patient presents today with bilateral leg swelling and feels his right leg is tingling in his thigh and down to his foot. Denies any associated weakness or numbness in the foot or any incontinence. No chest pain or shortness of breath. Is concerned about DVT. REVIEW OF SYSTEMS: Eye: no change in vision ENT: no sore throat Cardiac: no chest pain or syncope Pulmonary: no cough or SOB Abdomen: Is having some gas and bowel movement, has a little bit of residual abdominal pain but much improved since the surgery Musculoskeletal: no back pain Skin: no rash, incisions clean dry and intact Neuro: no headache Constitutional: no fever : no urinary symptoms A comprehensive 10 point review of systems is otherwise negative aside from elements mentioned in the history of present illness. PAST MEDICAL HISTORY: Cholecystectomy in gallstone pancreatitis, hypothyroid Social history: here with his General Appearance: Alert and conversant, cooperative. Eyes: No scleral icterus. ENT, Mouth: Normal mucous membranes. Respiratory: Normal respiratory effort, breath sounds equal, lungs are clear to auscultation. Cardiovascular: Regular rate and rhythm. Gastrointestinal: Abdomen is soft and non tender. Incisions look clean dry and intact. Neurological: Alert, face symmetric, normal motor and sensory in extremities. Skin: Warm and dry, no rashes. Musculoskeletal: Trace bilateral pedal edema but the patient has normal motor and sensory in each foot, compartments are soft, patellar reflexes 2+ and symmetric, dorsalis pedis pulse present in both feet. Psychiatric: Not agitated. Emergency Department course/MDM: Bilateral leg ultrasound ordered to evaluate for DVT. I think it is more likely that he has leg swelling from third-spacing of all the IV fluid he received. If negative ultrasound, symptomatic treatment only. Smoking Status: Never smoked Constitutional: Initial Vital Signs Temperature (C) 36.4 C 11/24/17 18:18 Heart Rate 58 L 11/24/17 18:18 Respiratory Rate 16 11/24/17 18:18 Blood Pressure 141/90 H 11/24/17 18:18 O2 Sat (%) 97 11/24/17 18:18 O2 Delivery Mode Room Air Allergies/Adverse Reactions: No Known Allergies Allergy (Unverified 11/19/17 17:35) Home Medications: Medication Instructions Recorded Levothyroxine [Synthroid 100 mcg 100 mcg PO DAILY06 11/19/17 (*)] oxyCODONE IR [Oxycodone Ir (*)] 5 - 10 mg PO Q4HRS PRN #15 tab 11/23/17 Medical Decision Making - Diagnostics Imaging Results: Imaging Impressions Extremity Venous Study 11/24/17 18:53 Impression: No evidence of deep vein thrombosis in the right or left lower extremity. Results discussed with Dr. Marks at 7:58 PM. Imaging: Discussed imaging studies w/ rehabilitation therapist Radiologist Differential Diagnosis: Differential considered including but not limited to sciatica, DVT, arterial occlusion, compartment syndrome, fracture, peripheral edema from IV fluids Departure - Departure Disposition: Home, Routine, Self-Care Clinical Impression: Mild peripheral edema Condition: Good Instructions: Leg Edema (ED) Additional Instructions: Ultrasound negative blood clot. Referrals: Anitha Phan MD [Primary Care Provider] - As per Instructions
[2017-11-24 20:19] VITALS: BP 136/95; PULSE 61
== END 2017-11-24 20:19 | disposition home or self-care (01) ==
DX: R60.0 Localized edema (principal)